=== PATIENT | female | born 1965 | race Caucasian/White ===

== ENCOUNTER → 2021-04-24 | Outpatient (CLI) | payer OTHER ==
[~2021-04-24] MED LIST: METHACHOLINE KIT (J7674) INH ONE
--- NOTE | 2021-04-24 11:01 | PFTRPT ---
Site: [facility], [address] [place], [address] ID: [id number] Name: ALEX TAYLOR Visit Date: 04/24/2021 Second ID: [id number] Referring Doctor: EFRAÍN BAUMANN Reviewing Doctor: Cheikh Mancilla MD Cafeteria Counter Attendant: Ginette CONNORS RRT Age: 55 : 1965 Sex: Female Race: Height: 59.50 Inches Weight: 150.00 Lbs BSA: 1.64 Order IDs: [id number] Requested Test(s): <RESP-PFT.METH CHAL> Diagnosis: R05 puffs of albuterol for post bronchodilator. Review Status: Not Reviewed Pre-Bronch Post-Bronch Pred Actual %Pred Actual %Chng SPIROMETRY FVC (L) 2.93 2.75 94 2.59 -6 FEV1 (L) 2.30 2.26 98 2.16 -4 FEV1/FVC (%) 79 82 103 84 1 FEF 25% (L/sec) 4.65 6.66 143 6.07 -8 FEF 50% (L/sec) 3.81 3.54 92 3.27 -7 FEF 75% (L/sec) 1.35 0.75 55 0.55 -26 FEF 25-75% (L/sec) 2.36 2.41 102 1.97 -18 FEF Max (L/sec) 5.92 7.39 124 7.16 -3 FIVC (L) 2.56 2.19 -14 FIF 50% (L/sec) 3.46 5.82 168 5.94 2 FIF Max (L/sec) 5.86 6.13 4 Expiratory Time (sec) 6.41 4.67 -27 Back Extrap Vol (L) 0.08 0.09 11 Time To FEFmax (sec) 0.066 0.065
== END ==
LOC: M CARPUL 09:45
PROVIDERS: ATTEND Nurse Practitioner Family
DX: R05 Cough (principal)
CPT/HCPCS: 94070; J7674